=== PATIENT | female | born 1955 | race Caucasian/White ===

== ENCOUNTER 2016-11-25 15:30 | Emergency (ER) | payer SELFPAY ==
[~2016-11-25] VITALS: Ht 160 cm; Wt 82.0 kg
[~2016-11-25 15:30] MED LIST: BUSP5TAB3 PO; IBUP-232 PO; METO50CR PO; PARO20TA PO; TRAM50 PO
[2016-11-25 15:35] VITALS: BP 160/86; PULSE 61; RESP 16; TEMP 98.2; O2SAT 97
[2016-11-25 15:50] VITALS: BP 159/77; PULSE 62; RESP 22; TEMP 98.7; O2SAT 96
[2016-11-25] MEDS ORDERED: HYDR-3516 PO (16:02)
[2016-11-25] MEDS ORDERED: PARO20TA2 PO (16:02)
[2016-11-25] MEDS ORDERED: prednisone (16:02)
[2016-11-25] MEDS ORDERED: PRED2.5T PO (16:02)
[2016-11-25] MEDS ORDERED: ALPR.5 PO (16:02)
[2016-11-25] MEDS ORDERED: METO50TA11 PO (16:02)
--- NOTE | 2016-11-25 16:05 | PD ---
HPI Chief Complaint: Headache Time Seen by Provider: 15:49 Travel History International Travel<30 days: No Contact w/Intl Traveler<30days: No Traveled to known affect area: No History of Present Illness HPI 61-year-old female came to the emergency room with history of sudden onset of feeling dizzy/lightheaded, nauseous, feeling like she was going to pass out followed by a headache. Patient says this happened at 3 PM when she had entered her physical therapist's office and was sitting down eating for her appointment. She says she was feeling very warm this morning. The temperature in her house has been 85. When she drove herself to the physical therapist's office her car did not have air conditioning and it was very hot as well. They took her blood pressure and it was 190/110. Her heart rate was in the 90s and as per the patient although those numbers are much higher than her usual. Currently she is feeling better. Although she still has some headache. Patient is awake and answering questions appropriately. Vital signs are within acceptable limits. PFSH Past Medical History Narrative Medical List of her past medical, surgical, social and family history is reviewed from the nursing note. Arthritis: Yes Blood Disorders: No Anxiety: Yes Depression: Yes Heart Rhythm Problems: Yes Cancer: No High Cholesterol: Yes Chemotherapy: No Chest Pain: Yes Congestive Heart Failure: No Diminished Hearing: No Diverticulitis: Yes Headaches: Yes Hypertension: Yes Musculoskeletal: No Neurologic: No Respiratory: No Migraines: Yes Radiation Therapy: No Sleep Apnea: Yes Tetanus Vaccination: > 5 Years Influenza Vaccination: Yes ?: Not Menopausal: Yes : 4 Para: 2 Miscarriage: 2 : 0 Past Surgical History Body Medical Devices: BRONCHITIS Other Surgery: Yes (RIGHT BREAST LUMPECTOMY) Social History Alcohol Use: Yes (WINE DAILY) Tobacco Use: Yes (0.5 PPD) Substance Use: No Allergies-Medications (Allergen,Severity, Reaction): Coded Allergies: Fire Ant (Verified Allergy, Unknown, 11/25/16) Uncoded Allergies: tea tree oil (Allergy, Mild, 11/25/16) Comments List of her allergies reviewed from the nursing note. Reported Meds & Prescriptions Reported Meds & Active Scripts Active Reported Prednisone 2.5 Mg Tab 2.5 Mg PO QOD [prednisone] Hydrocodone-Acetaminophen 5-325 mg Tab 1 Tab PO Q12HR PRN Xanax (Alprazolam) 0.5 Mg Tab 0.5 Mg PO Q12HR PRN Paroxetine (Paroxetine HCl) 20 Mg Tab 20 Mg PO DAILY Metoprolol Succinate ER 24 HR (Metoprolol Succinate) 50 Mg Tab 50 Mg PO DAILY Narrative Medication List of her home medications reviewed from the nursing note. Review of Systems Except as stated in HPI: all other systems reviewed are Neg Physical Exam Narrative GENERAL: Awake, alert, anxious, no obvious distress SKIN: Focused skin assessment warm/dry. HEAD: Atraumatic. Normocephalic. EYES: Pupils equal and round. No scleral icterus. No injection or drainage. ENT: No nasal bleeding or discharge. Mucous membranes pink and moist. NECK: Trachea midline. No JVD. CARDIOVASCULAR: Regular rate and rhythm. No murmur appreciated. RESPIRATORY: No accessory muscle use. Clear to auscultation. Breath sounds equal bilaterally. GASTROINTESTINAL: Abdomen soft, non-tender, nondistended. Hepatic and splenic margins not palpable. MUSCULOSKELETAL: No obvious deformities. No clubbing. No cyanosis. No edema. NEUROLOGICAL: Awake and alert. No obvious cranial nerve deficits. Motor grossly within normal limits. Normal speech. PSYCHIATRIC: Appropriate mood and affect; insight and judgment normal. Data Data Last Documented VS Vital Signs Date Time Temp Pulse Resp B/P Pulse Ox O2 Delivery O2 Flow Rate FiO2 11/25/16 16:24 Room Air 11/25/16 15:50 98.7 62 22 159/77 96 Orders Electrocardiogram (11/25/16 16:21) Prothrombin Time / Inr (Pt) (11/25/16 16:21) Complete Blood Count With Diff (11/25/16 16:21) Basic Metabolic Panel (Bmp) (11/25/16 16:21) Troponin I (11/25/16 16:21) Urinalysis - C+S If Indicated (11/25/16 16:21) Ct Brain W/O Iv Contrast(Rout) (11/25/16 16:21) Ecg Monitoring (11/25/16 16:21) Iv Access Insert/Monitor (11/25/16 16:21) Oximetry (11/25/16 16:21) Ondansetron Inj (Zofran Inj) (11/25/16 16:30) Sodium Chloride 0.9% Flush (Ns Flush) (11/25/16 16:30) Sodium Chlorid 0.9% 500 Ml Inj (Ns 500 M (11/25/16 16:30) Ketorolac Inj (Toradol Inj) (11/25/16 17:30) Labs Laboratory Tests Test 11/25/16 16:25 White Blood Count 9.3 TH/MM3 Red Blood Count 4.42 MIL/MM3 Hemoglobin 13.8 GM/DL Hematocrit 42.0 % Mean Corpuscular Volume 95.0 FL Mean Corpuscular Hemoglobin 31.1 PG Mean Corpuscular Hemoglobin 32.8 % Concent Red Cell Distribution Width 14.6 % Platelet Count 238 TH/MM3 Mean Platelet Volume 9.0 FL Neutrophils (%) (Auto) 75.5 % Lymphocytes (%) (Auto) 15.0 % Monocytes (%) (Auto) 5.4 % Eosinophils (%) (Auto) 3.2 % Basophils (%) (Auto) 0.9 % Neutrophils # (Auto) 7.0 TH/MM3 Lymphocytes # (Auto) 1.4 TH/MM3 Monocytes # (Auto) 0.5 TH/MM3 Eosinophils # (Auto) 0.3 TH/MM3 Basophils # (Auto) 0.1 TH/MM3 CBC Comment DIFF FINAL Differential Comment Prothrombin Time 10.0 SEC Prothromb Time International 0.9 RATIO Ratio Urine Color LIGHT-YELLOW Urine Turbidity HAZY Urine pH 6.0 Urine Specific [place] 1.004 Urine Protein NEG mg/dL Urine Glucose (UA) NEG mg/dL Urine Ketones NEG mg/dL Urine Occult Blood NEG Urine Nitrite NEG Urine Bilirubin NEG Urine Urobilinogen LESS THAN 2.0 MG/DL Urine Leukocyte Esterase NEG Urine WBC LESS THAN 1 /hpf Urine Squamous Epithelial 5 /hpf Cells Urine Amorphous Sediment RARE Microscopic Urinalysis Comment CATH-CULT NOT IND Sodium Level 138 MEQ/L Potassium Level 3.7 MEQ/L Chloride Level 102 MEQ/L Carbon Dioxide Level 27.5 MEQ/L Anion Gap 9 MEQ/L Blood Urea Nitrogen 12 MG/DL Creatinine 0.71 MG/DL Estimat Glomerular Filtration 83 ML/MIN Rate Random Glucose 115 MG/DL Calcium Level 8.9 MG/DL Troponin I LESS THAN 0.02 NG/ML [facility] Medical Decision Making Medical Screen Exam Complete: Yes Emergency Medical Condition: Yes Medical Record Reviewed: Yes Differential Diagnosis TIA, heat exhaustion, dehydration Narrative Course 4:56 PM awaiting for the blood test result and the CAT scan to be done and resulted. I've ordered a fluid bolus and IV Zofran for the patient. Case will be signed over to the oncoming ER physician. Procedures EKG Prior to Arrival: Jacinda Gray MD November 25, 2016 16:05
[2016-11-25] MEDS ORDERED: ONDANSETRON HCL 4 MG/2 ML VIAL IVP ONE (16:30)
[2016-11-25] MEDS ORDERED: SODIUM CHLORID 0.9% 500 ML INJ 500 ML IV ONE (16:30)
[2016-11-25] MEDS ORDERED: SODIUM CHLORIDE 0.9% FLUSH 10 ML FLUSH IVF PRN (16:30)
[2016-11-25 17:02] LABS: BLOOD, URINE NEG (NEG); GLUCOSE,URINE NEG (NEG); KETONE, URINE NEG (NEG); NITRITE,URINE NEG (NEG); SQUAMOUS EPITHELIAL CELL URINE 5 /hpf (0-5); URINE COLOR LIGHT-YELLOW (YELLW/STRAW)
--- NOTE | 2016-11-25 17:06 | PD ---
Physical Exam Date Seen by Provider: November 25, 2016 Time Seen by Provider: 17:05 Narrative The patient is a 61-year-old female was initially evaluated by the previous physician, Dr. Alicea. Please refer to the initial history, physical, diagnostic evaluation, and treatment modality plan. The patient was signed out of 5 PM laboratory evaluation and CT of the brain pending. Data Data Last Documented VS Vital Signs Date Time Temp Pulse Resp B/P Pulse Ox O2 Delivery O2 Flow Rate FiO2 11/25/16 16:24 Room Air 11/25/16 15:50 98.7 62 22 159/77 96 Orders Electrocardiogram (11/25/16 16:21) Prothrombin Time / Inr (Pt) (11/25/16 16:21) Complete Blood Count With Diff (11/25/16 16:21) Basic Metabolic Panel (Bmp) (11/25/16 16:21) Troponin I (11/25/16 16:21) Urinalysis - C+S If Indicated (11/25/16 16:21) Ct Brain W/O Iv Contrast(Rout) (11/25/16 16:21) Ecg Monitoring (11/25/16 16:21) Iv Access Insert/Monitor (11/25/16 16:21) Oximetry (11/25/16 16:21) Ondansetron Inj (Zofran Inj) (11/25/16 16:30) Sodium Chloride 0.9% Flush (Ns Flush) (11/25/16 16:30) Sodium Chlorid 0.9% 500 Ml Inj (Ns 500 M (11/25/16 16:30) Ketorolac Inj (Toradol Inj) (11/25/16 17:30) Labs Laboratory Tests Test 11/25/16 16:25 White Blood Count 9.3 TH/MM3 Red Blood Count 4.42 MIL/MM3 Hemoglobin 13.8 GM/DL Hematocrit 42.0 % Mean Corpuscular Volume 95.0 FL Mean Corpuscular Hemoglobin 31.1 PG Mean Corpuscular Hemoglobin 32.8 % Concent Red Cell Distribution Width 14.6 % Platelet Count 238 TH/MM3 Mean Platelet Volume 9.0 FL Neutrophils (%) (Auto) 75.5 % Lymphocytes (%) (Auto) 15.0 % Monocytes (%) (Auto) 5.4 % Eosinophils (%) (Auto) 3.2 % Basophils (%) (Auto) 0.9 % Neutrophils # (Auto) 7.0 TH/MM3 Lymphocytes # (Auto) 1.4 TH/MM3 Monocytes # (Auto) 0.5 TH/MM3 Eosinophils # (Auto) 0.3 TH/MM3 Basophils # (Auto) 0.1 TH/MM3 CBC Comment DIFF FINAL Differential Comment Prothrombin Time 10.0 SEC Prothromb Time International 0.9 RATIO Ratio Urine Color LIGHT-YELLOW Urine Turbidity HAZY Urine pH 6.0 Urine Specific [place] 1.004 Urine Protein NEG mg/dL Urine Glucose (UA) NEG mg/dL Urine Ketones NEG mg/dL Urine Occult Blood NEG Urine Nitrite NEG Urine Bilirubin NEG Urine Urobilinogen LESS THAN 2.0 MG/DL Urine Leukocyte Esterase NEG Urine WBC LESS THAN 1 /hpf Urine Squamous Epithelial 5 /hpf Cells Urine Amorphous Sediment RARE Microscopic Urinalysis Comment CATH-CULT NOT IND Sodium Level 138 MEQ/L Potassium Level 3.7 MEQ/L Chloride Level 102 MEQ/L Carbon Dioxide Level 27.5 MEQ/L Anion Gap 9 MEQ/L Blood Urea Nitrogen 12 MG/DL Creatinine 0.71 MG/DL Estimat Glomerular Filtration 83 ML/MIN Rate Random Glucose 115 MG/DL Calcium Level 8.9 MG/DL Troponin I LESS THAN 0.02 NG/ML [facility] Medical Record Reviewed: Yes Supervised Visit with ALYSIA: No Interpretation(s) EKG reveals sinus bradycardia with a rate of 55. Unifocal PVC. Low QRS voltage precordial leads. Laboratory Tests Test 11/25/16 16:25 White Blood Count 9.3 TH/MM3 Red Blood Count 4.42 MIL/MM3 Hemoglobin 13.8 GM/DL Hematocrit 42.0 % Mean Corpuscular Volume 95.0 FL Mean Corpuscular Hemoglobin 31.1 PG Mean Corpuscular Hemoglobin 32.8 % Concent Red Cell Distribution Width 14.6 % Platelet Count 238 TH/MM3 Mean Platelet Volume 9.0 FL Neutrophils (%) (Auto) 75.5 % Lymphocytes (%) (Auto) 15.0 % Monocytes (%) (Auto) 5.4 % Eosinophils (%) (Auto) 3.2 % Basophils (%) (Auto) 0.9 % Neutrophils # (Auto) 7.0 TH/MM3 Lymphocytes # (Auto) 1.4 TH/MM3 Monocytes # (Auto) 0.5 TH/MM3 Eosinophils # (Auto) 0.3 TH/MM3 Basophils # (Auto) 0.1 TH/MM3 CBC Comment DIFF FINAL Differential Comment Prothrombin Time 10.0 SEC Prothromb Time International 0.9 RATIO Ratio Urine Color LIGHT-YELLOW Urine Turbidity HAZY Urine pH 6.0 Urine Specific [place] 1.004 Urine Protein NEG mg/dL Urine Glucose (UA) NEG mg/dL Urine Ketones NEG mg/dL Urine Occult Blood NEG Urine Nitrite NEG Urine Bilirubin NEG Urine Urobilinogen LESS THAN 2.0 MG/DL Urine Leukocyte Esterase NEG Urine WBC LESS THAN 1 /hpf Urine Squamous Epithelial 5 /hpf Cells Urine Amorphous Sediment RARE Microscopic Urinalysis Comment CATH-CULT NOT IND Sodium Level 138 MEQ/L Potassium Level 3.7 MEQ/L Chloride Level 102 MEQ/L Carbon Dioxide Level 27.5 MEQ/L Anion Gap 9 MEQ/L Blood Urea Nitrogen 12 MG/DL Creatinine 0.71 MG/DL Estimat Glomerular Filtration 83 ML/MIN Rate Random Glucose 115 MG/DL Calcium Level 8.9 MG/DL Troponin I LESS THAN 0.02 NG/ML Last Impressions Head CT 11/25/16 1621 Signed Impressions: Service Date/Time: Friday, November 25, 2016 17:05 - CONCLUSION: 1. No evidence of acute intracranial pathology. No masses are identified. 1. Christ Fragoso MD Differential Diagnosis Differential diagnosis includes heat exhaustion, heat stroke, cephalgia, tension headache, migraine, subarachnoid hemorrhage, intracranial hemorrhage, presyncope, dehydration. Narrative Course The patient was initially evaluated by the previous physician, Dr. Nickerson. Please refer to the initial history, physical, diagnostic evaluation, and treatment modality plan. The patient was signed out at [address] of the brain and laboratory evaluation pending. Brain was negative. The patient was reevaluated at 5:20 PM, her symptoms had significantly improved since she cold out, still complain of a mild headache and thought it might improve after eating. Therefore, the patient was administered Toradol 50 mg intravenously and was provided a snack. Labs are unremarkable. UA is negative. Troponin is negative. The patient was reevaluated at 6 PM, tolerated gram crackers and Gatorade without difficulty. The patient's truck is at her physical therapist office on [address], we will have case management evaluate the patient to see if we can obtain a ride for the patient to her truck. She is stable for discharge. Diagnosis Primary Impression: Cephalgia Qualified Code: R51 - Nonintractable headache, unspecified chronicity pattern , unspecified headache type Additional Impression: Heat exposure Qualified Code: T67.9XXA - Heat exposure, initial encounter Patient Instructions: General Instructions Additional Instruction: Plenty fluids to stay hydrated. Follow-up with her primary physician. Return if symptoms worsen or progress. Med/Other Pt SpecificInfo: No Change to Meds Disposition: 01 DISCHARGE HOME Condition: Stable Tyson King MD November 25, 2016 17:06
[2016-11-25 17:09] LABS: BASOPHIL # 0.1 TH/MM3 (0-0.2); BASOPHIL % 0.9 % (0.0-2.0); EOSINOPHIL # 0.3 TH/MM3 (0-0.4); EOSINOPHIL % 3.2 % (0.0-4.0); HEMO FLAGS DIFF FINAL; LYMPHOCYTE # 1.4 TH/MM3 (1.0-4.8); MEAN CORPUSCULAR HEMOGLOBIN 31.1 PG (27.0-34.0); MEAN CORPUSCULAR HGB CONC 32.8 % (32.0-36.0); MONO % 5.4 % (0.0-8.0); NEUT % 75.5 % (16.0-70.0); PLATELET COUNT 238 TH/MM3 (150-450); RED BLOOD COUNT 4.42 MIL/MM3 (4.00-5.30); RED CELL DISTRIBUTION WIDTH 14.6 % (11.6-17.2); WHITE BLOOD COUNT 9.3 TH/MM3 (4.0-11.0)
--- NOTE | 2016-11-25 17:17 | RADRPT ---
EXAM DATE/TIME: 11/25/2016 17:05 [facility] COMPARISON: No previous studies available for comparison. INDICATIONS : High blood pressure with a headache RADIATION DOSE: 46.40 CTDIvol (mGy) MEDICAL HISTORY : Hypertension. SURGICAL HISTORY : None. ENCOUNTER: Initial ACUITY: 1 day PAIN SCALE: 6/10 LOCATION: Bilateral cranial TECHNIQUE: Multiple contiguous axial images were obtained of the head. Using automated exposure control and adj ustment of the mA and/or kV according to patient size, radiation dose was kept as low as reasonably a chievable to obtain optimal diagnostic quality images. FINDINGS: CEREBRUM: The ventricles are normal for age. No evidence of midline shift, mass lesion, hemorrhage or acute in farction. No extra-axial fluid collections are seen. POSTERIOR FOSSA: The cerebellum and brainstem are intact. The 4th ventricle is midline. The cerebellopontine angle i s unremarkable. EXTRACRANIAL: The visualized portion of the orbits is intact. SKULL: The calvaria is intact. No evidence of skull fracture. CONCLUSION: 1. No evidence of acute intracranial pathology. No masses are identified. 1. Christ Fragoso MD on November 25, 2016 at 17:15 Board Certified Radiologist. This report was verified electronically.
[2016-11-25 17:21] LABS: COMMENT (UR) CATH-CULT NOT IND; CULTURE IF INDICATED CATH CULTURE NOT IND
[2016-11-25 17:24] LABS: ANION GAP 9 MEQ/L (5-15); BICARBONATE 27.5 MEQ/L (21.0-32.0); BLOOD UREA NITROGEN 12 MG/DL (7-18); CHLORIDE 102 MEQ/L (98-107); GLOMERULAR FILTRATION RATE 83 ML/MIN (>89); POTASSIUM 3.7 MEQ/L (3.5-5.1); SODIUM (NA) 138 MEQ/L (136-145)
[2016-11-25] MEDS ORDERED: KETOROLAC TROMETHAMINE 30 MG/ML (IVP) VIAL IV PUSH ONE (17:30)
[2016-11-25 17:44] LABS: INTERNATIONAL NORMALIZED RATIO 0.9 RATIO
--- NOTE | 2016-11-26 16:17 | EKG ---
Date Performed: 11/25/2016 Time Performed: 16:35:43 PTAGE: 61 years EKG: SINUS BRADYCARDIA WITH OCCASIONAL VENTRICULAR PREMATURE COMPLEXES POSSIBLE LEFT ATRIAL ENLA RGEMENT LOW QRS VOLTAGE IN PRECORDIAL LEADS Compared to previous tracing, the patient is now having P VCs BORDERLINE ECG NO PREVIOUS TRACING DOCTOR: Sunshine Parker Interpretating Date/Time 11/26/2016 16:15:19
== END 2016-11-25 18:50 | disposition home or self-care (01) ==
LOC: NEPD 15:30
DX: R51 Headache (principal); T67.9XXA Effect of heat and light, unspecified, initial encounter; R00.1 Bradycardia, unspecified
CPT/HCPCS: 70450; 80048; 81001; 84484; 85025; 85610; 93005; 96361; 96374; 96375; 99284; J1885; J2405; J7040

== ENCOUNTER 2017-08-01 18:34 | Emergency (ER) | payer SELFPAY ==
[~2017-08-01] VITALS: Ht 160 cm; Wt 85.0 kg
[~2017-08-01 18:34] MED LIST changes: +ALPR.5 PO; -BUSP5TAB3 PO; +HYDR-3516 PO; -IBUP-232 PO; +METO1TAB9 PO; -METO50CR PO; -PARO20TA PO; +PARO20TA2 PO; +PRED2.5T PO; -TRAM50 PO; +prednisone
[2017-08-01 18:56] VITALS: BP 157/79; PULSE 78; RESP 20; TEMP 98.7; O2SAT 97
[2017-08-01] MEDS ORDERED: ACETAMINOPHEN 325 MG TAB PO ONE (20:30)
--- NOTE | 2017-08-01 21:46 | RADRPT ---
EXAM DATE/TIME: 08/01/2017 20:52 [facility] COMPARISON: No previous studies available for comparison. INDICATIONS : Patient complains of headache, slipped and fell, hitting head on tile. RADIATION DOSE: 69.15 CTDIvol (mGy) MEDICAL HISTORY : Hypertension. Cardiovascular disease SURGICAL HISTORY : None. ENCOUNTER: Initial ACUITY: 1 day PAIN SCALE: 8/10 LOCATION: cranial TECHNIQUE: Multiple contiguous axial images were obtained of the head. Using automated exposure control and adj ustment of the mA and/or kV according to patient size, radiation dose was kept as low as reasonably a chievable to obtain optimal diagnostic quality images. DICOM format image data is available electro nically for review and comparison. FINDINGS: CEREBRUM: The ventricles are normal for age. No evidence of midline shift, mass lesion, hemorrhage or acute in farction. No extra-axial fluid collections are seen. POSTERIOR FOSSA: The cerebellum and brainstem are intact. The 4th ventricle is midline. The cerebellopontine angle i s unremarkable. EXTRACRANIAL: The visualized portion of the orbits is intact. SKULL: The calvaria is intact. No evidence of skull fracture. CONCLUSION: Normal examination for a patient of this age. John Roach MD on August 01, 2017 at 21:43 Board Certified Radiologist. This report was verified electronically.
--- NOTE | 2017-08-01 21:49 | RADRPT ---
EXAM DATE/TIME: 08/01/2017 20:55 [facility] COMPARISON: No previous studies available for comparison. INDICATIONS : Patient complains of headache, slipped and fell hit head on tile. RADIATION DOSE: 28.81 CTDIvol (mGy) MEDICAL HISTORY : Hypertension. Cardiovascular disease SURGICAL HISTORY : Non-responsive. ENCOUNTER: Initial ACUITY: 1 day PAIN SCALE: 8/10 LOCATION: neck TECHNIQUE: Volumetric scanning of the cervical spine was performed. Multiplanar reconstructions in the sagittal, coronal and oblique axial planes were performed. Using automated exposure control and adjustment o f the mA and/or kV according to patient size, radiation dose was kept as low as reasonably achievable to obtain optimal diagnostic quality images. DICOM format image data is available electronically f or review and comparison. FINDINGS: No fracture or spondylolisthesis. No prevertebral soft tissue swelling. Moderate degenerative disc di sease in the lower cervical spine. CONCLUSION: 1. No acute findings. Moderate degenerative disease in the lower cervical spine. John Roach MD on August 01, 2017 at 21:44 Board Certified Radiologist. This report was verified electronically.
[2017-08-01 22:08] VITALS: BP 160/82; PULSE 61; RESP 18; O2SAT 100
--- NOTE | 2017-08-01 22:30 | PD ---
HPI Chief Complaint: Fall Time Seen by Provider: 20:02 Travel History International Travel<30 days: No Contact w/Intl Traveler<30days: No Traveled to known affect area: No History of Present Illness HPI 62-year-old female came to the emergency room with history of headache. Patient says that she slipped and fell backwards and hit the back of her head on tile floor very hard yesterday. She had some headaches and but after she took some rest she felt better. But this morning when she woke up she started having the headache again. And it has progressively worsened. She does not feel good and hence she came in. Patient is awake and answering questions appropriately. Vital signs are stable. She is not on any blood thinners. She describes her headache all over her head with no radiation. No aggravating or relieving factors identified. [facility] Past Medical History Narrative Medical List of her past medical, surgical, social and family history is reviewed from the nursing note. Arthritis: Yes Blood Disorders: No Anxiety: Yes Depression: Yes Heart Rhythm Problems: Yes Cancer: No Cardiovascular Problems: Yes High Cholesterol: Yes Chemotherapy: No Chest Pain: Yes Congestive Heart Failure: No Diminished Hearing: No Diverticulitis: Yes Headaches: Yes Hypertension: Yes Musculoskeletal: No Neurologic: No Respiratory: No Migraines: Yes Radiation Therapy: No Sleep Apnea: Yes Menopausal: Yes : 4 Para: 2 Miscarriage: 2 : 0 Past Surgical History Body Medical Devices: BRONCHITIS Other Surgery: Yes (RIGHT BREAST LUMPECTOMY) Social History Alcohol Use: Yes (WINE DAILY) Tobacco Use: Yes (0.5 PPD) Substance Use: No Allergies-Medications (Allergen,Severity, Reaction): Coded Allergies: fire ant (Unverified Allergy, Unknown, 08/01/17) Uncoded Allergies: tea tree oil (Allergy, Mild, 11/25/16) Comments List of allergies reviewed from the nursing note. Reported Meds & Prescriptions Reported Meds & Active Scripts Active Reported [prednisone] Hydrocodone-Acetaminophen 5-325 mg Tab 1 Tab PO Q12HR PRN Xanax (Alprazolam) 0.5 Mg Tab 0.5 Mg PO Q12HR PRN Paroxetine (Paroxetine HCl) 20 Mg Tab 20 Mg PO DAILY Metoprolol Succinate ER 24 HR (Metoprolol Succinate) 50 Mg Tab 50 Mg PO DAILY Narrative Medication List of her home medications reviewed from the nursing note. Review of Systems Except as stated in HPI: all other systems reviewed are Neg Neurologic: Positive: Headache Physical Exam Narrative GENERAL: Awake, alert, moderate distress SKIN: Focused skin assessment warm/dry. HEAD: Atraumatic. Normocephalic. EYES: Pupils equal and round. No scleral icterus. No injection or drainage. ENT: No nasal bleeding or discharge. Mucous membranes pink and moist. NECK: Trachea midline. No JVD. CARDIOVASCULAR: Regular rate and rhythm. No murmur appreciated. RESPIRATORY: No accessory muscle use. Clear to auscultation. Breath sounds equal bilaterally. GASTROINTESTINAL: Abdomen soft, non-tender, nondistended. Hepatic and splenic margins not palpable. MUSCULOSKELETAL: No obvious deformities. No clubbing. No cyanosis. No edema. NEUROLOGICAL: Awake and alert. No obvious cranial nerve deficits. Motor grossly within normal limits. Normal speech. PSYCHIATRIC: Appropriate mood and affect; insight and judgment normal. Data Data Last Documented VS Vital Signs Date Time Temp Pulse Resp B/P (MAP) Pulse Ox O2 Delivery O2 Flow Rate FiO2 08/01/17 22:58 08/01/17 22:08 61 18 100 Room Air 08/01/17 18:[address] Brain W/O Iv Contrast(Rout) (08/01/17 ) Ct Cerv Spine W/O Contrast (08/01/17 ) Acetaminophen (Tylenol) (08/01/17 20:30) Ed Discharge Order (08/01/17 22:23) MDM Medical Decision Making Medical Screen Exam Complete: Yes Emergency Medical Condition: Yes Medical Record Reviewed: Yes Differential Diagnosis Intracranial bleed, skull fracture, concussion Narrative Course 10:[address] scan of her brain and cervical spine was reported as negative by the radiologist. Patient was given Tylenol for her headache. At this point I think she has postconcussive headache. I've explained this to her. I have answered all her questions the best of my ability. I'm comfortable discharging her home. Procedures EKG Prior to Arrival: No Diagnosis Primary Impression: Post-concussion headache Referrals: Primary Care Physician Departure Forms: Tests/Procedures, Work Release Enter return to work date: Aug 04, 2017 Additional Instructions: Return to the ER if condition worsens or any other new concerns. Tylenol over the next 48-72 hours. Do not watch any television, computer screens or Smart phone. If the headache continues then follow-up with your primary care who may then need to refer you to a neurologist. Med/Other Pt SpecificInfo: No Change to Meds Disposition: 01 DISCHARGE HOME Condition: Stable Jacinda Nickerson MD Aug 01, 2017 22:30
== END 2017-08-01 23:18 | disposition home or self-care (01) ==
LOC: NEPC 18:34
DX: F07.81 Postconcussional syndrome (principal); G44.309 Post-traumatic headache, unspecified, not intractable; F41.9 Anxiety disorder, unspecified; F32.9 Major depressive disorder, single episode, unspecified; E78.00 Pure hypercholesterolemia, unspecified; I10 Essential (primary) hypertension; I25.10 Atherosclerotic heart disease of native coronary artery without angina pectoris; F17.200 Nicotine dependence, unspecified, uncomplicated
CPT/HCPCS: 70450; 72125; 99285

== ENCOUNTER 2017-11-19 18:56 | Inpatient (IN) | payer SELFPAY ==
[~2017-11-19] VITALS: Ht 160 cm; Wt 84.4 kg
[2017-11-19] MEDS: SODIUM CHLOR 0.9% 1000 ML INJ 1,000 ML IV SCH (00:51)
[~2017-11-19 18:56] MED LIST changes: -PRED2.5T PO
[2017-11-19 19:01] VITALS: BP 211/98; PULSE 75; RESP 18; TEMP 97.6; O2SAT 99
--- NOTE | 2017-11-19 19:24 | PD ---
HPI Chief Complaint: Abdominal Pain Time Seen by Provider: 19:09 Travel History International Travel<30 days: No Contact w/Intl Traveler<30days: No Traveled to known affect area: No History of Present Illness HPI The patient is a 62 year old female who presents to the [facility] emergency department with a history of abdominal pain and diarrhea that she reports began 10 days ago. The patient reports that the diarrhea seemed to improve and then began to get worse again on Monday. She reports that the abdominal pain has gradually been getting worse with time and is now a 10 out of 10 in severity. The patient reports that the abdominal pain feels like she has been punched in the abdomen. She reports that the pain is constant. She reports that the pain is worse with eating. She denies any alleviating factors. She reports that the diarrhea has been occurring since Monday approximately 25 times a day. She reports that the stool is watery. She is otherwise unsure of the color. She has not noticed any blood in the stool. The patient reports that the pain has now moved and is more generalized throughout her abdomen. She reports having generalized weakness. She reports having nausea without vomiting. She reports having dyspnea on exertion. She denies having any chest pain or chest pressure. She reports having chronic urinary frequency which is unchanged. She denies having any dysuria or urinary urgency. She is unsure of whether she has had any fevers. The patient denies having any known sick contacts, recent antibiotic use, unusual food intake, or recent camping. The patient reports that the last time that she was on antibiotic was over 3 months ago. She cannot recall the name of the antibiotic. She cannot recall why she took the antibiotic. On review of systems otherwise she denies having any significant cough or congestion, neck pain, or neurologic symptoms. [facility] Past Medical History Narrative Medical The patient's past medical history is significant for hypertension, depression and anxiety, chronic low back pain, history of diverticulitis. The patient reports that her last colonoscopy was approximately 10 years ago. Her primary care physician is Dr. Fontaine. Arthritis: Yes Blood Disorders: No Anxiety: Yes Depression: Yes Heart Rhythm Problems: Yes Cancer: No Cardiovascular Problems: Yes High Cholesterol: Yes Chemotherapy: No Chest Pain: Yes Congestive Heart Failure: No Diminished Hearing: No Diverticulitis: Yes Headaches: Yes Hypertension: Yes Musculoskeletal: No Neurologic: No Respiratory: No Migraines: Yes Radiation Therapy: No Sleep Apnea: Yes Tetanus Vaccination: Unknown Influenza Vaccination: No ?: Not LMP: menapause Menopausal: Yes : 4 Para: 2 Miscarriage: 2 : 0 Past Surgical History Narrative Surgical The patient's past surgical history is significant for shoulder surgery, right tennis elbow surgery Body Medical Devices: BRONCHITIS Other Surgery: Yes (RIGHT BREAST LUMPECTOMY) Social History Alcohol Use: Yes (WINE DAILY-1-2 glasses) Tobacco Use: Yes (0.5 PPD) Substance Use: No Allergies-Medications (Allergen,Severity, Reaction): Coded Allergies: fire ant (Unverified Allergy, Unknown, 11/19/17) Uncoded Allergies: tea tree oil (Allergy, Mild, 11/25/16) Reported Meds & Prescriptions Reported Meds & Active Scripts Active Reported Hydrocodone-Acetaminophen 5-325 mg Tab 1 Tab PO Q12HR PRN Xanax (Alprazolam) 0.5 Mg Tab 0.5 Mg PO Q12HR PRN Paroxetine (Paroxetine HCl) 20 Mg Tab 20 Mg PO DAILY Metoprolol Succinate ER 24 HR (Metoprolol Succinate) 50 Mg Tab 50 Mg PO DAILY Review of Systems Except as stated in HPI: all other systems reviewed are Neg General / Constitutional: No: Fever Eyes: No: Visual changes HENT: No: Headaches Cardiovascular: Positive: Dyspnea on exertion, No: Chest Pain or Discomfort Respiratory: No: Shortness of Breath Gastrointestinal: Positive: Nausea, Diarrhea, Abdominal Pain, No: Vomiting Genitourinary: No: Dysuria Musculoskeletal: No: Pain Skin: No Rash Neurologic: Positive: Weakness (Generalized weakness), No: Focal Abnormalities , Change in Mentation, Slurred Speech, Sensory Disturbance Psychiatric: No: Depression Endocrine: No: Polydipsia Hematologic/Lymphatic: No: Easy Bruising Physical Exam Narrative General: The patient is a well-developed well-nourished female in no acute distress. Head and Neck exam: Head is normocephalic atraumatic. Eyes: EOMI, pupils are equal round and reactive to light. Nose: Midline septum with pink mucous membranes Mouth: Dentition unremarkable. Moist mucus membranes. Posterior oropharynx is not erythematous. No tonsillar hypertrophy. Uvula midline. Airway patent. Neck: No palpable lymphadenopathy. No nuchal rigidity. No thyromegaly. Cardiovascular: Regular rate and rhythm without murmurs, gallops, or rubs. No pulse deficit to the extremities on simultaneous auscultation and palpation of her radial artery. Lungs: Clear to auscultation bilaterally. No wheezes, rhonchi, or rales. Abdomen: Soft, with reported tenderness on palpation and that is most prominent in the midepigastric area and bilateral lower quadrants of the abdomen, however she reports that it is diffuse to palpation. The patient has normal bowel sounds audible. No guarding, rebound, or rigidity. No point tenderness specifically on palpation of her McBurney's point. Negative Chavez sign. Extremities: No clubbing, cyanosis, or edema. 2+ pulses in all 4 extremities. No calf tenderness on palpation. Back: No spinous process tenderness to palpation. No costovertebral angle tenderness to palpation. Neurologic Exam: Grossly nonfocal. Skin Exam: No rash noted. Intact skin that is warm and dry. Data Data Last Documented VS Vital Signs Date Time Temp Pulse Resp B/P (MAP) Pulse Ox O2 Delivery O2 Flow Rate FiO2 11/19/17 20:41 20 11/19/17 20:31 99 Room Air 11/19/17 20:13 63 11/19/17 19:01 97.6 Orders Orders Electrocardiogram (11/19/17 19:21) Complete Blood Count With Diff (11/19/17 19:21) Comprehensive Metabolic Panel (11/19/17 19:21) Creatine Kinase (Cpk) (11/19/17 19:21) Ckmb (Isoenzyme) Profile (11/19/17 19:21) Troponin I (11/19/17:) B-Type Natriuretic Peptide (11/19/17 19:21) Prothrombin Time / Inr (Pt) (11/19/17 19:21) Act Partial Throm Time (Ptt) (11/19/17 19:21) Lipase (11/19/17 19:21) Urinalysis - C+S If Indicated (11/19/17 19:21) Magnesium (Mg) (11/19/17 19:21) Enteric Path (Stool) (11/19/17 19:21) C Diff Toxin Pcr (11/19/17 19:21) Chest, Single Ap (11/19/17 19:21) Ct Abd/Pel W Iv Contrast(Rout) (11/19/17 19:21) Iv Access Insert/Monitor (11/19/17 19:21) Ecg Monitoring (11/19/17 19:21) Oximetry (11/19/17 19:21) Stool Wbc (Leukocytes) (11/19/17 19:21) Lactic Acid (11/19/17 19:21) Sodium Chlor 0.9% 1000 Ml Inj (Ns 1000 M (11/19/17 19:30) Ondansetron Inj (Zofran Inj) (11/19/17 19:30) Morphine Inj (Morphine Inj) (11/19/17 19:30) Prochlorperazine Inj (Compazine Inj) (11/19/17 20:00) Oral Rehydration (11/19/17 20:41) Prochlorperazine Inj (Compazine Inj) (11/19/17 21:00) Iohexol 350 Inj (Omnipaque 350 Inj) (11/19/17 21:07) Metronidazole 500 Mg Inj (Flagyl 500 Mg (11/19/17 21:45) Levofloxacin (Levaquin) (11/19/17 21:45) Morphine Inj (Morphine Inj) (11/19/17 21:45) Admit Order (Ed Use Only) (11/19/17 21:42) Labs Laboratory Tests Test 11/19/17 19:45 White Blood Count 8.1 TH/MM3 Red Blood Count 4.62 MIL/MM3 Hemoglobin 14.2 GM/DL Hematocrit 42.3 % Mean Corpuscular Volume 91.6 FL Mean Corpuscular Hemoglobin 30.7 PG Mean Corpuscular Hemoglobin Concent 33.6 % Red Cell Distribution Width 13.2 % Platelet Count 268 TH/MM3 Mean Platelet Volume 8.1 FL Neutrophils (%) (Auto) 63.9 % Lymphocytes (%) (Auto) 24.5 % Monocytes (%) (Auto) 6.7 % Eosinophils (%) (Auto) 4.2 % Basophils (%) (Auto) 0.7 % Neutrophils # (Auto) 5.2 TH/MM3 Lymphocytes # (Auto) 2.0 TH/MM3 Monocytes # (Auto) 0.5 TH/MM3 Eosinophils # (Auto) 0.3 TH/MM3 Basophils # (Auto) 0.1 TH/MM3 CBC Comment DIFF FINAL Differential Comment Prothrombin Time 10.3 SEC Prothromb Time International Ratio 1.0 RATIO Activated Partial Thromboplast Time 26.7 SEC Urine Color LIGHT-YELLOW Urine Turbidity CLEAR Urine pH 6.0 Urine Specific [place] 1.007 Urine Protein NEG mg/dL Urine Glucose (UA) NEG mg/dL Urine Ketones NEG mg/dL Urine Occult Blood NEG Urine Nitrite NEG Urine Bilirubin NEG Urine Urobilinogen LESS THAN 2.0 MG/DL Urine Leukocyte Esterase NEG Urine RBC 1 /hpf Urine WBC 1 /hpf Urine Squamous Epithelial Cells 3 /hpf Microscopic Urinalysis Comment CULT NOT INDICATED Blood Urea Nitrogen 6 MG/DL Creatinine 0.69 MG/DL Random Glucose 98 MG/DL Total Protein 7.3 GM/DL Albumin 3.5 GM/DL Calcium Level 9.5 MG/DL Magnesium Level 1.9 MG/DL Alkaline Phosphatase 67 U/L Aspartate Amino Transf (AST/SGOT) 12 U/L Alanine Aminotransferase (ALT/SGPT) 17 U/L Total Bilirubin 0.3 MG/DL Sodium Level 140 MEQ/L Potassium Level 3.5 MEQ/L Chloride Level 104 MEQ/L Carbon Dioxide Level 26.2 MEQ/L Anion Gap 10 MEQ/L Estimat Glomerular Filtration Rate 86 ML/MIN Lactic Acid Level 1.3 mmol/L Total Creatine Kinase 46 U/L Troponin I LESS THAN 0.02 NG/ML B-Type Natriuretic Peptide 123 PG/ML Lipase 73 U/L [facility] Medical Decision Making Medical Screen Exam Complete: Yes Emergency Medical Condition: Yes Medical Record Reviewed: Yes Interpretation(s) Last Impressions Chest X-Ray 11/19/171920 Signed Impressions: Service Date/Time: Sunday, November 19, 2017 19:29 - CONCLUSION: No acute disease. David Valencia MD Abdomen/Pelvis CT 11/19/171920 Signed Impressions: Service Date/Time: Sunday, November 19, 2017 20:43 - CONCLUSION: 1. 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 2. Prominent lymph nodes in the mesentery, retroperitoneum and retrocrural regions, nonspecific but condition such as leukemia/lymphoma cannot be excluded. 3. Diverticulosis without diverticulitis. David Valencia MD Differential Diagnosis Diverticulitis, versus colitis, versus pancreatitis, versus electrolyte derangements, versus dehydration Narrative Course During the course of the patient's emergency department visit, the patient's history, examination, and differential diagnosis were reviewed with the patient. The patient was placed on a barrel centerer with oximetry and frequent blood pressure monitoring. The patient had IV access obtained and blood work sent for analysis. An EKG is done and shows a sinus bradycardia heart rate of 50, QRS duration 94 ms, QTC [address] segment elevation or depression , T waves are inverted in V1. The patient was initially provided normal saline 1 L IV fluid bolus, morphine 4 mg IV, Compazine 5 mg IV. The patient's laboratory studies were reviewed and remarkable for a CBC that shows a white count of 8.1, hemoglobin 14.2, platelets 268 with 4.2 eosinophils on differential. CMP is remarkable for a BUN of 6, GFR of 86, AST 12, cardiac enzymes are within normal limits, lipase within normal limits, BNP is 123, lactic acid 1.3, PT 10.3, PTT 26.7. Urinalysis is within normal limits. The patient was updated regarding her laboratory studies. The patient will be started on oral rehydration therapy. Radiology studies were reviewed and remarkable for a chest x-ray that shows no acute disease. A CT scan of the abdomen and pelvis shows garland mesentery which can be seen with mesenteric panniculitis, prominent lymph nodes in the mesentery , retroperitoneum, and retrocrural regions nonspecific but condition such as leukemia/lymphoma cannot be excluded. Diverticulosis without diverticulitis. Given these findings, the patient was started on antibiotic and admitted for continued evaluation and treatment. The patient's results were discussed with the patient, including the plan of care. I explained that further testing and/ or monitoring is indicated based on the patient's history, examination, and/ or laboratory findings. Therefore, I recommended admission for additional evaluation. The patient expressed understanding and was agreeable with this plan. The patient was admitted to the hospital in stable condition and sent to a bed under the care of the [facility] service. Physician Communication Physician Communication The patient's case including history, pertinent physical examination findings, and laboratory studies were discussed with Dr. Dai. It was agreed that the patient would be admitted to the [facility] service. Diagnosis Primary Impression: Mesenteric panniculitis Additional Impression: Intra-abdominal lymphadenopathy Admitting Information Admitting Physician Requests: Admit Suze Perez MD November 19, 2017 19:23
[2017-11-19] MEDS ORDERED: ONDANSETRON HCL 4 MG/2 ML VIAL IV ONE (19:30)
[2017-11-19] MEDS ORDERED: MORPHINE SULFATE 4 MG/ML INJ IV PUSH ONE ×2 (19:30→21:45)
[2017-11-19] MEDS ORDERED: SODIUM CHLOR 0.9% 1000 ML INJ 1,000 ML IV ONE (19:30)
--- NOTE | 2017-11-19 19:45 | RADRPT ---
EXAM DATE/TIME: 11/19/2017 19:29 [facility] COMPARISON: No previous studies available for comparison. INDICATIONS : Nausea, vomiting, fever x10 days. MEDICAL HISTORY : None. SURGICAL HISTORY : None. ENCOUNTER: Initial ACUITY: 2 weeks PAIN SCORE: 10/10 LOCATION: Bilateral chest FINDINGS: A single view of the chest demonstrates the lungs to be symmetrically aerated without evidence of mas s, infiltrate or effusion. The cardiomediastinal contours are unremarkable. Osseous structures are intact. CONCLUSION: No acute disease. David Valencia MD on November 19, 2017 at 19:42 Board Certified Radiologist. This report was verified electronically.
[2017-11-19 19:57] LABS: AUTOMATED NEUTROPHIL # 5.2 TH/MM3 (1.8-7.7); BASOPHIL # 0.1 TH/MM3 (0-0.2); BASOPHIL % 0.7 % (0.0-2.0); EOSINOPHIL # 0.3 TH/MM3 (0-0.4); EOSINOPHIL % 4.2 % (0.0-4.0); HEMATOCRIT 42.3 % (35.0-46.0); HEMOGLOBIN 14.2 GM/DL (11.6-15.3); LYMPH % 24.5 % (9.0-44.0); MEAN CELL VOLUME 91.6 FL (80.0-100.0); MEAN CORPUSCULAR HEMOGLOBIN 30.7 PG (27.0-34.0); MEAN CORPUSCULAR HGB CONC 33.6 % (32.0-36.0); MEAN PLATELET VOLUME 8.1 FL (7.0-11.0); MONO % 6.7 % (0.0-8.0); MONOCYTE # 0.5 TH/MM3 (0-0.9); NEUT % 63.9 % (16.0-70.0); PLATELET COUNT 268 TH/MM3 (150-450); RED BLOOD COUNT 4.62 MIL/MM3 (4.00-5.30); RED CELL DISTRIBUTION WIDTH 13.2 % (11.6-17.2); WHITE BLOOD COUNT 8.1 TH/MM3 (4.0-11.0)
[2017-11-19 20:00] LABS: BILIRUBIN, URINE NEG (NEG); BLOOD, URINE NEG (NEG); GLUCOSE,URINE NEG (NEG); KETONE, URINE NEG (NEG); NITRITE,URINE NEG (NEG); SQUAMOUS EPITHELIAL CELL URINE 3 /hpf (0-5); URINE COLOR LIGHT-YELLOW (YELLW/STRAW); URINE LEUKOCYTE ESTERASE NEG (NEG)
[2017-11-19] MEDS ORDERED: PROCHLORPERAZINE INJ 10 MG/2 ML VIAL IV PUSH ONE ×2 (20:00→21:00)
[2017-11-19 20:13] VITALS: BP 153/73; PULSE 63; RESP 15; O2SAT 99
[2017-11-19 20:16] LABS: ALBUMIN 3.5 GM/DL (3.4-5.0); AST (GOT) 12 U/L (15-37); BICARBONATE 26.2 MEQ/L (21.0-32.0); BLOOD UREA NITROGEN 6 MG/DL (7-18); CALCIUM 9.5 MG/DL (8.5-10.1); CHLORIDE 104 MEQ/L (98-107); CREATININE 0.69 MG/DL (0.50-1.00); GLOMERULAR FILTRATION RATE 86 ML/MIN (>89); GLUCOSE,RANDOM 98 MG/DL (74-106); MAGNESIUM 1.9 MG/DL (1.5-2.5); PROTHROMBIN TIME - PATIENT 10.3 SEC (9.8-11.6); SODIUM (NA) 140 MEQ/L (136-145)
[2017-11-19 20:17] LABS: ALT (GPT) 17 U/L (10-53)
[2017-11-19 20:21] LABS: ALKALINE PHOSPHATASE 67 U/L (45-117); TOTAL BILIRUBIN ADULT 0.3 MG/DL (0.2-1.0); TOTAL PROTEIN 7.3 GM/DL (6.4-8.2); TROPONIN I LESS THAN 0.02 NG/ML (0.02-0.05)
[2017-11-19 20:31] VITALS: RESP 17; O2SAT 99
[2017-11-19] MEDS ORDERED: IOHEXOL 350 MG/ML 10 ML VIAL (for RAD DIAG) IVCONTRAST ONE (21:07)
--- NOTE | 2017-11-19 21:17 | RADRPT ---
EXAM DATE/TIME: 11/19/2017 20:43 [facility] COMPARISON: No previous studies available for comparison. INDICATIONS : Diffuse abdominal pain for 10 days. IV CONTRAST: 97 cc Omnipaque 350 (iohexol) IV ORAL CONTRAST: Prescribed oral contrast ingested. RADIATION DOSE: 7.77 CTDIvol (mGy) MEDICAL HISTORY : Cardiovascular disease. Hypertension. SURGICAL HISTORY : Right Breast Lumpectomy. ENCOUNTER: Initial ACUITY: 2 weeks PAIN SCALE: 5/10 LOCATION: Abdomen TECHNIQUE: Volumetric scanning of the abdomen and pelvis was performed. Using automated exposure control and ad justment of the mA and/or kV according to patient size, radiation dose was kept as low as reasonably achievable to obtain optimal diagnostic quality images. DICOM format image data is available electro nically for review and comparison. FINDINGS: LOWER LUNGS: The visualized lower lungs are clear. LIVER: Homogeneous density without lesion. There is no dilation of the biliary tree. No calcified gallston es. SPLEEN: Normal size without lesion. PANCREAS: Within normal limits. KIDNEYS: Normal in size and shape. There is no mass, stone or hydronephrosis. ADRENAL GLANDS: Within normal limits. VASCULAR: There is no aortic aneurysm. BOWEL/MESENTERY: Diverticulosis of the colon without diverticulitis. Lisbet mesentery. Mildly prominent lymph nodes in the mesentery largest measures 2.4 x 1.9 cm.. There is no free intraperitoneal air or fluid. ABDOMINAL WALL: Within normal limits. RETROPERITONEUM: There is retrocrural lymph node on the right measures 1.7 x 1.3 cm. There is right periaortic lymphad enopathy posterior to the IVC measuring 1.4 x 0.9 cm. Other smaller retroperitoneal lymphadenopathy.. BLADDER: No wall thickening or mass. REPRODUCTIVE: Within normal limits. INGUINAL: There is no lymphadenopathy or hernia. MUSCULOSKELETAL: Within normal limits for patient age. CONCLUSION: 1. Lisbet mesentery which can be seen with mesenteric panniculitis. 2. Prominent lymph nodes in the mesentery, retroperitoneum and retrocrural regions, nonspecific but c ondition such as leukemia/lymphoma cannot be excluded. 3. Diverticulosis without diverticulitis. David Valencia MD on November 19, 2017 at 21:11 Board Certified Radiologist. This report was verified electronically.
[2017-11-19] MEDS ORDERED: LEVOFLOXACIN 500 MG TAB PO ONE (21:45)
[2017-11-19] MEDS ORDERED: metroNIDAZOLE 500 MG INJ 100 ML IV ONE (21:45)
[2017-11-19] MEDS ORDERED: SODIUM CHLORIDE 0.9% FLUSH 10 ML FLUSH IV FLUSH PRN (23:15)
[2017-11-19] MEDS ORDERED: NALOXONE HCL 0.4 MG/ML AMP IV PUSH PRN (23:15)
[2017-11-19] MEDS ORDERED: ACETAMINOPHEN 325 MG TAB PO PRN (23:15)
[2017-11-19] MEDS ORDERED: MORPHINE SULFATE 4 MG/ML INJ IV PUSH PRN ×2 (23:15)
--- NOTE | 2017-11-19 23:27 | HHI.HP ---
HPI Service [facility] Primary Care Physician Timothy Cornell MD Admission Diagnosis Mesenteric paniculitis, Intraabdominal lymphadenopathy Diagnoses: Travel History International Travel<30 Days: No Contact w/Intl Traveler <30 Da: No Traveled to Known Affected Are: No History of Present Illness 62-year-old female with a past medical history significant for hypertension, chronic back pain, depression and anxiety presents to the emergency department for the evaluation of abdominal pain. The patient reports for the last 10 days she thought she had the stomach flu. She states that she had significant abdominal pain with accompanying nausea and diarrhea times the last 3 days. She has been unable to eat anything except for toast and soup since her symptoms began. She endorses subjective fever and chills. The patient denies any chest pain or shortness of breath. She reports increasing weakness throughout the course of her illness. No lateralizing signs/symptoms. Review of Systems Except as stated in HPI: all other systems reviewed are Neg Past Family Social History Past Medical History Hypertension Depression Chronic back pain Anxiety Past Surgical History Right tennis elbow Right shoulder Reported Medications Reported Meds & Active Scripts Active Reported Hydrocodone-Acetaminophen 5-325 mg Tab 1 Tab PO Q12HR PRN Xanax (Alprazolam) 0.5 Mg Tab 0.5 Mg PO Q12HR PRN Paroxetine (Paroxetine HCl) 20 Mg Tab 20 Mg PO DAILY Metoprolol Succinate ER 24 HR (Metoprolol Succinate) 50 Mg Tab 50 Mg PO DAILY Allergies: Coded Allergies: fire ant (Unverified Allergy, Unknown, 11/19/17) Uncoded Allergies: tea tree oil (Allergy, Mild, 11/25/16) Family History Mother with CAD Social History Smokes approximately three quarters of a pack per day. Drinks approximately 1- 2 glasses of wine daily. Denies illicit drugs. Physical Exam Vital Signs Vital Signs Date Time Temp Pulse Resp B/P (MAP) Pulse Ox O2 Delivery O2 Flow Rate FiO2 11/19/17 20:41 20 11/19/17 20:31 17 99 Room Air 11/19/17 20:13 63 15 153/73 (99) 99 Room Air 11/19/17 19:01 97.6 75 18 211/98 (755) 99 Physical Exam GENERAL: female lying in bed SKIN: No rashes, ecchymoses or lesions. Cool and dry. HEAD: Atraumatic. Normocephalic. No temporal or scalp tenderness. EYES: Pupils equal round and reactive. Extraocular motions intact. No scleral icterus. No injection or drainage. ENT: Nose without bleeding, purulent drainage or septal hematoma. Throat without erythema, tonsillar hypertrophy or exudate. Uvula midline. Airway patent. NECK: Trachea midline. No JVD or lymphadenopathy. Supple, nontender, no meningeal signs. CARDIOVASCULAR: Regular rate and rhythm without murmurs, gallops, or rubs. RESPIRATORY: Clear to auscultation. Breath sounds equal bilaterally. No wheezes , rales, or rhonchi. GASTROINTESTINAL: Abdomen soft, diffusely tender to palpation, nondistended. No hepato-splenomegaly, or palpable masses. No guarding. MUSCULOSKELETAL: Extremities without clubbing, cyanosis, or edema. No joint tenderness, effusion, or edema noted. No calf tenderness. NEUROLOGICAL: Awake and alert. Cranial nerves II through XII intact. Motor and sensory grossly within normal limits. Normal speech. Laboratory Laboratory Tests Test 11/19/17 19:45 White Blood Count 8.1 Red Blood Count 4.62 Hemoglobin 14.2 Hematocrit 42.3 Mean Corpuscular Volume 91.6 Mean Corpuscular Hemoglobin 30.7 Mean Corpuscular Hemoglobin Concent 33.6 Red Cell Distribution Width 13.2 Platelet Count 268 Mean Platelet Volume 8.1 Neutrophils (%) (Auto) 63.9 Lymphocytes (%) (Auto) 24.5 Monocytes (%) (Auto) 6.7 Eosinophils (%) (Auto) 4.2 Basophils (%) (Auto) 0.7 Neutrophils # (Auto) 5.2 Lymphocytes # (Auto) 2.0 Monocytes # (Auto) 0.5 Eosinophils # (Auto) 0.3 Basophils # (Auto) 0.1 CBC Comment DIFF FINAL Differential Comment Prothrombin Time 10.3 Prothromb Time International Ratio 1.0 Activated Partial Thromboplast Time 26.7 Urine Color LIGHT-YELLOW Urine Turbidity CLEAR Urine pH 6.0 Urine Specific [place] 1.007 Urine Protein NEG Urine Glucose (UA) NEG Urine Ketones NEG Urine Occult Blood NEG Urine Nitrite NEG Urine Bilirubin NEG Urine Urobilinogen LESS THAN 2.0 Urine Leukocyte Esterase NEG Urine RBC 1 Urine WBC 1 Urine Squamous Epithelial Cells 3 Microscopic Urinalysis Comment CULT NOT INDICATED Blood Urea Nitrogen 6 Creatinine 0.69 Random Glucose 98 Total Protein 7.3 Albumin 3.5 Calcium Level 9.5 Magnesium Level 1.9 Alkaline Phosphatase 67 Aspartate Amino Transf (AST/SGOT) 12 Alanine Aminotransferase (ALT/SGPT) 17 Total Bilirubin 0.3 Sodium Level 140 Potassium Level 3.5 Chloride Level 104 Carbon Dioxide Level 26.2 Anion Gap 10 Estimat Glomerular Filtration Rate 86 Lactic Acid Level 1.3 Total Creatine Kinase 46 Troponin I LESS THAN 0.02 B-Type Natriuretic Peptide 123 Lipase 73 Result Diagram: 11/19/17194411/19/171944 Caprini VTE Risk Assessment Caprini VTE Risk Assessment: Mod/High Risk (score >= 2) Caprini Risk Assessment Model Point Value = 1 Point Value = 2 Point Value = 3 Point Value = 5 Age 41-60 Minor surgery BMI > 25 kg/m2 Swollen legs Varicose veins or History of unexplained or recurrent spontaneous Oral contraceptives or hormone replacement Sepsis (< 1 month) Serious lung disease, including pneumonia (< 1 month) Abnormal pulmonary function Acute myocardial infarction Congestive heart failure (< 1 month) History of inflammatory bowel disease Medical patient at bed rest Age 61-74 Arthroscopic surgery Major open surgery (> 45 min) Laparoscopic surgery (> 45 min) Malignancy Confined to bed (> 72 hours) Immobilizing plaster cast Central venous access Age >= 75 History of VTE Family history of VTE Factor V Leiden Prothrombin [id number] Lupus anticoagulant Anticardiolipin antibodies Elevated serum homocysteine Heparin-induced thrombocytopenia Other congenital or acquired thrombophilia Stroke (< 1 month) Elective arthroplasty Hip, pelvis, or leg fracture Acute spinal cord injury (< 1 month) Prophylaxis Regimen Total Risk Factor Score Risk Level Prophylaxis Regimen 0-1 Low Early ambulation 2 Moderate Order ONE of the following: *Sequential Compression Device (SCD) *Heparin 5000 units SQ BID 3-4 Higher Order ONE of the following medications: *Heparin 5000 units SQ TID *Enoxaparin/Lovenox 40 mg SQ daily (WT < 150 kg, CrCl > 30 mL/min) *Enoxaparin/Lovenox 30 mg SQ daily (WT < 150 kg, CrCl > 10-29 mL/min) *Enoxaparin/Lovenox 30 mg SQ BID (WT < 150 kg, CrCl > 30 mL/min) AND/OR *Sequential Compression Device (SCD) 5 or more Highest Order ONE of the following medications: *Heparin 5000 units SQ TID (Preferred with Epidurals) *Enoxaparin/Lovenox 40 mg SQ daily (WT < 150 kg, CrCl > 30 mL/min) *Enoxaparin/Lovenox 30 mg SQ daily (WT < 150 kg, CrCl > 10-29 mL/min) *Enoxaparin/Lovenox 30 mg SQ BID (WT < 150 kg, CrCl > 30 mL/min) AND *Sequential Compression Device (SCD) Assessment and Plan Assessment and Plan Assessment/plan: 1. Abdominal pain CT of the abdomen/pelvis significant for garland mesentery consistent with mesenteric panniculitis and prominent lymph nodes in the mesentery, retroperitoneum and retrocrural regions, cannot exclude leukemia/lymphoma Concern for infection versus leukemia/lymphoma Levaquin and Flagyl for possible infectious etiology Medical oncology consulted, appreciate recommendations Morphine for pain 2. Hypertension Continue home metoprolol 3. Depression/anxiety Continue home fluoxetine and Xanax 4. Chronic back pain Holding home hydrocodone as patient on morphine FEN NPO Electrolytes: Monitor and replete as needed NS at 100 cc/hour Heparin Physician Certification 2 Midnight Certification Type: Admission for Inpatient Services Order for Inpatient Services The services are ordered in accordance with Medicare regulations or non- Medicare payer requirements, as applicable. In the case of services not specified as inpatient-only, they are appropriately provided as inpatient services in accordance with the 2-midnight benchmark. Estimated LOS (days): 2 2 days is the estimated time the patient will need to remain in the hospital, assuming treatment plan goals are met and no additional complications. Post-Hospital Plan: Not yet determined Adrianne Dai MD November 19, 2017 23:27
[2017-11-19] MEDS ORDERED: ZOLPIDEM TARTRATE 10 MG TAB PO PRN (23:30)
[2017-11-19] MEDS ORDERED: ALPRAZolam 0.5 MG TAB PO PRN (23:30)
[2017-11-20 01:35] VITALS: BP 134/60; PULSE 51; RESP 16; TEMP 97.6; O2SAT 96
[2017-11-20 04:23] VITALS: BP 127/62; PULSE 50; RESP 16; TEMP 97.6; O2SAT 97
[2017-11-20] MEDS: metroNIDAZOLE 500 MG INJ 100 ML IV SCH ×3 (06:03→22:56)
[2017-11-20 07:50] VITALS: BP 103/56; PULSE 57; RESP 20; TEMP 98.3; O2SAT 98
[2017-11-20 07:57] LABS: BASOPHIL # 0.1 TH/MM3 (0-0.2); BASOPHIL % 0.7 % (0.0-2.0); EOSINOPHIL # 0.4 TH/MM3 (0-0.4); EOSINOPHIL % 3.9 % (0.0-4.0); HEMOGLOBIN 12.8 GM/DL (11.6-15.3); LYMPH % 22.7 % (9.0-44.0); LYMPHOCYTE # 2.1 TH/MM3 (1.0-4.8); MEAN CELL VOLUME 91.7 FL (80.0-100.0); MEAN CORPUSCULAR HEMOGLOBIN 31.1 PG (27.0-34.0); MEAN CORPUSCULAR HGB CONC 33.9 % (32.0-36.0); MEAN PLATELET VOLUME 8.1 FL (7.0-11.0); MONO % 7.2 % (0.0-8.0); MONOCYTE # 0.7 TH/MM3 (0-0.9); NEUT % 65.5 % (16.0-70.0); PLATELET COUNT 238 TH/MM3 (150-450); RED BLOOD COUNT 4.14 MIL/MM3 (4.00-5.30); RED CELL DISTRIBUTION WIDTH 13.5 % (11.6-17.2); WHITE BLOOD COUNT 9.2 TH/MM3 (4.0-11.0)
--- NOTE | 2017-11-20 08:05 | HHI.PR ---
Subjective Remarks in no acute distress. abdominal pain is better. no nausea or vomiting. afebrile. Objective Vitals Vital Signs Date Time Temp Pulse Resp B/P (MAP) Pulse Ox O2 Delivery O2 Flow Rate FiO2 11/20/17 07:50 98.3 57 20 103/56 (72) 98 11/20/17 04:23 97.6 50 16 127/62 (83) 97 11/20/17 01:35 97.6 51 16 134/60 (84) 96 11/20/17 01:19 11/19/17 20:41 20 11/19/17 20:31 17 99 Room Air 11/19/17 20:13 63 15 153/73 (99) 99 Room Air 11/19/17 19:01 97.6 75 18 211/98 (135) 99 I/O 11/19/17 11/19/17 11/19/17 11/20/17 11/20/17 11/20/17 07:00 15:00 23:00 07:00 15:00 23:00 Intake Total 1100 ml Balance 1100 ml Intake IV Total 1100 ml # Voids 3 Result Diagram: 11/19/17194411/19/171944 Imaging Last Impressions Chest X-Ray 11/19/171920 Signed Impressions: Service Date/Time: Sunday, November 19, 2017 19:29 - CONCLUSION: No acute disease. David Valencia MD Abdomen/Pelvis CT 11/19/171920 Signed Impressions: Service Date/Time: Sunday, November 19, 2017 20:43 - CONCLUSION: 1. 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 2. Prominent lymph nodes in the mesentery, retroperitoneum and retrocrural regions, nonspecific but condition such as leukemia/lymphoma cannot be excluded. 3. Diverticulosis without diverticulitis. David Valencia MD Objective Remarks GENERAL: This is a well-nourished, well-developed patient, in no apparent distress. CARDIOVASCULAR: Regular rate and regular rhythm without murmurs, gallops, or rubs. RESPIRATORY: Clear to auscultation. Breath sounds equal bilaterally. No wheezes , rales, or rhonchi. GASTROINTESTINAL: Abdomen soft, non-tender, nondistended. Normal, active bowel sounds MUSCULOSKELETAL: Extremities without clubbing, cyanosis, or edema. NEURO: Alert & Oriented x4 to person, place, time, situation. Moves all ext x4 Medications and IVs Inpatient Medications Acetaminophen (Tylenol) 650 mg Q4H PRN PO TEMP > 100.4; Start 11/19/17 at 23:15 Alprazolam (Xanax) 0.5 mg Q12HR PRN PO ANXIETY; Start 11/19/17 at 23:30 Heparin Sodium (Porcine) (Heparin Inj) 5,000 units Q12HR SQ ; Start 11/20/17 at 09:00 Influenza Virus Vaccine (Flu (Quadrivalent) Vaccine Inj) 0.5 ml ONCE ONCE IM ; Start 11/21/17 at 10:00; Stop 11/21/17 at 10:01 Levofloxacin (Levaquin) 500 mg ONCE ONCE PO Last administered on 11/19/17at 21: 42; Start 11/19/17 at 21:45; Stop 11/19/17 at 21:46; Status DC Levofloxacin/ Dextrose 150 ml @ 100 mls/hr Q24H IV ; Start 11/20/17 at 20:00 Metoprolol Succinate (Toprol Xl) 50 mg DAILY PO ; Start 11/20/17 at 09:00 Metronidazole 100 ml @ 100 mls/hr Q8H IV Last administered on 11/20/17at 06:03 ; Start 11/20/17 at 06:00 Morphine Sulfate (Morphine Inj) 4 mg Q3H PRN IV PUSH 6-10 Last administered on 11/20/17at 02:05; Start 11/19/17 at 23:15 Naloxone HCl (Narcan Inj) 0.4 mg UNSCH PRN IV PUSH SEE LABEL COMMENTS; Start at 23:15 Ondansetron HCl (Zofran Inj) 4 mg ONCE ONCE IV ; Start 11/19/17 at 19:30; Stop 11/19/17 at 20:00; Status DC Paroxetine HCl (Paxil) 20 mg DAILY PO ; Start 11/20/17 at 09:00 Prochlorperazine Edisylate (Compazine Inj) 5 mg ONCE ONCE IV PUSH Last administered on 11/19/17at 21:04; Start 11/19/17 at 21:00; Stop 11/19/17 at 21:01 ; Status DC Sodium Chloride 1,000 ml @ 100 mls/hr Q10H IV Last administered on 11/19/17at 00:51; Start 11/19/17 at 23:30 Sodium Chloride (NS Flush) 2 ml BID IV FLUSH ; Start 11/20/17 at 09:00 Zolpidem Tartrate (Ambien) 10 mg HS PRN PO Insomnia; Start 11/19/17 at 23:30 A/P Assessment and Plan 1. Abdominal pain CT of the abdomen/pelvis significant for garland mesentery consistent with mesenteric panniculitis and prominent lymph nodes in the mesentery, retroperitoneum and retrocrural regions, cannot exclude leukemia/lymphoma Concern for infection versus leukemia/lymphoma Jose and Amalia for possible infectious etiology Medical oncology consulted, appreciate recommendations Morphine for pain for now will start on liquid diet within the next 24 hrs if pain continues to improve. 2. Hypertension Continue home metoprolol 3. Depression/anxiety Continue home fluoxetine and Xanax 4. Chronic back pain Holding home hydrocodone as patient on morphine Discharge Planning awaiting oncology evaluation. Nikkie Bullard MD November 20, 2017 08:05
[2017-11-20 08:31] LABS: BICARBONATE 28.4 MEQ/L (21.0-32.0); CALCIUM 8.1 MG/DL (8.5-10.1); CREATININE 0.57 MG/DL (0.50-1.00)
[2017-11-20] MEDS: SODIUM CHLORIDE 0.9% FLUSH 10 ML FLUSH IV FLUSH SCH ×2 (09:00→20:22)
[2017-11-20] MEDS: PARoxetine HCL 20 MG TAB PO SCH (09:00)
[2017-11-20] MEDS: METOPROLOL SUCCINATE 50 MG EXTENDED RELEASE TAB PO SCH ×2 (09:00→15:38)
[2017-11-20] MEDS: HEPARIN SODIUM - SQ 10,000 UNITS/ML VIAL SQ SCH ×2 (09:00→20:26)
[2017-11-20 11:05] VITALS: BP 105/59; PULSE 47; RESP 20; TEMP 97.8; O2SAT 96
[2017-11-20 15:44] VITALS: BP 141/67; PULSE 54; RESP 20; TEMP 98.1; O2SAT 97
--- NOTE | 2017-11-20 18:45 | EKG ---
Date Performed: 11/19/2017 Time Performed: 19:56:07 PTAGE: 62 years EKG: SINUS BRADYCARDIA LOW QRS VOLTAGE IN PRECORDIAL LEADS BORDERLINE ECG Since the PREVIOUS TRACING , no significant change noted PREVIOUS TRACIN11/25/2016 16.35 DOCTOR: Dre Bryant Interpretating Date/Time 11/20/2017 18:43:52
[2017-11-20] MEDS: LEVOFLOXACIN 750 MG PREMIX INJ 150 ML IV SCH (20:23)
[2017-11-20] MEDS: SODIUM CHLOR 0.9% 1000 ML INJ 1,000 ML IV SCH (20:24)
[2017-11-20 20:34] VITALS: BP 164/70; PULSE 43; RESP 18; TEMP 97.5; O2SAT 97
--- NOTE | 2017-11-20 23:39 | MB ---
cc: Rayshawn May MD DATE: 11/20/2017 REASON FOR CONSULTATION: Consult requested by hospitalist for evaluation of abdominal lymphadenopathy. HISTORY OF PRESENT ILLNESS: Norma is a 62-year-old female. Her primary physician is Dr. Lopez and Dr. Oneill. She states that she has been having abdominal pain for the last couple of weeks. She went to see her primary physician, Dr. Oneill. She was given some medication without having any relief. She had developed severe diarrhea and the abdominal pain was getting worse. She decided to come to the emergency room. She underwent CAT scan of the abdomen and pelvis which showed mesenteric panniculitis and abdominal lymphadenopathy. The radiologist mentioned that this could be possible leukemia or lymphoma, I have been asked to see her for that. REVIEW OF SYSTEMS: The patient has a history of diverticulosis with diverticulitis. She stated that she thinks that this is one of her episodes of diverticulitis, having severe pain and diarrhea. Although the CAT scan of the abdomen and pelvis showed diverticulosis without any diverticulitis. The patient is on antibiotics. She states that her abdominal pain has improved with that. The rest of the review of systems is negative. PAST MEDICAL HISTORY: Arthritis, anxiety disorder, depression, hypertension, chronic low back pain, diverticulosis with diverticulitis, migraine headaches. PAST SURGICAL HISTORY: Shoulder surgery, right tennis elbow surgery, right breast lumpectomy and the pathology was benign. ALLERGIES: NONE TO MEDICATIONS: MEDICATIONS: Prior to going into the hospital: 1. Lortab. 2. Xanax. 3. Paroxetine. 4. Metoprolol. FAMILY HISTORY: None for malignancy. SOCIAL HISTORY: She smokes cigarettes, half pack a day, and also drinks alcohol, 1 to 2 drinks every day. PHYSICAL EXAMINATION: GENERAL: A well-developed, well-nourished, anxious appearing white female in no apparent distress. VITAL SIGNS: Temperature 97.8, heart rate is 47, blood pressure 105/59. HEAD, EYES, EARS, NOSE, AND THROAT: Pupils equal, round, reactive to light and accommodation, extraocular movements intact. Anicteric. No oral lesions noted. No thrush noted. NECK: Supple. No JVD. No masses noted. LUNGS: Clear. No wheezing, rhonchi, or rales. HEART: Regular rate and rhythm. No murmur heard. ABDOMEN: Diffusely tender. EXTREMITIES: No pedal edema. No cyanosis, no clubbing. NEUROLOGIC: Awake, alert, oriented x 3. Sensory and motor seem to be intact. SKIN: No bruises or petechiae noted. BREASTS: No masses noted. LYMPH NODES: No cervical, supraclavicular, or axillary lymphadenopathy noted. BACK: There is no spinal tenderness noted. ASSESSMENT : 1. Abdominal lymphadenopathy. The differential is infectious lymphadenopathy versus neoplastic. 2. Diverticulosis with diverticulitis. PLAN: I have reviewed her available records, and I have discussed with the patient regarding the CAT scan of the abdomen and pelvis findings. We discussed her blood test results. Her CBC is completely normal. She does not have any leukemia. She does have some abdominal lymphadenopathy, but she does not have any bulky lymphadenopathy. The lymphadenopathy could be benign versus malignant. My recommendation is to get the CAT scan of the chest to evaluate for any other lymphadenopathy. If the CAT scan of the chest shows significant lymphadenopathy, then we will attempt to get the biopsy. However, if the CT of the chest is negative, then my recommendation is to repeat CAT scan of the abdomen in 3 months. If the lymphadenopathy is progressive, then we will ask General Surgery for laparoscopic biopsy of the lymph node for tissue diagnosis. I will also order the tumor markers. Further recommendations will be based on her hospital stay. Thank you for asking my opinion. MD SMITA Figueroa/SMILEY , 11:17 PM , 11:38 PM
[2017-11-21] VITALS: BP 161/70; PULSE 56; RESP 20; TEMP 98.4; O2SAT 95
[2017-11-21 03:25] VITALS: BP 157/73; PULSE 59; RESP 18; TEMP 98.1; O2SAT 97
[2017-11-21] MEDS: SODIUM CHLOR 0.9% 1000 ML INJ 1,000 ML IV SCH ×2 (03:30→15:30)
[2017-11-21] MEDS: metroNIDAZOLE 500 MG INJ 100 ML IV SCH ×3 (06:09→20:24)
[2017-11-21 08:00] VITALS: BP 166/71; PULSE 45; RESP 18; TEMP 98.2; O2SAT 97
[2017-11-21] MEDS: HEPARIN SODIUM - SQ 10,000 UNITS/ML VIAL SQ SCH ×2 (09:00→20:24)
[2017-11-21] MEDS: SODIUM CHLORIDE 0.9% FLUSH 10 ML FLUSH IV FLUSH SCH ×2 (09:00→20:24)
[2017-11-21] MEDS ORDERED: INFLUENZA VIRUS VACCINE (QUADRIVALENT) 0.5 ML SYR IM ONE (10:00)
--- NOTE | 2017-11-21 10:04 | HHI.PR ---
Subjective Remarks in no acute distress. still with some diarrhea. denies abdominal pain, nausea or vomiting. Objective Vitals Vital Signs Date Time Temp Pulse Resp B/P (MAP) Pulse Ox O2 Delivery O2 Flow Rate FiO2 11/21/17 08:00 98.2 45 18 166/71 (102) 97 11/21/17 03:25 98.1 59 18 157/73 (101) 97 11/21/17 00:00 98.4 56 20 161/70 (100) 95 11/20/17 20:34 97.5 43 18 164/70 (101) 97 11/20/17 15:44 98.1 54 20 141/67 (91) 97 11/20/17 11:05 97.8 47 20 105/59 (74) 96 I/O 11/20/17 11/20/17 11/20/17 11/21/17 11/21/17 11/21/17 07:00 15:00 23:00 07:00 15:00 23:00 Intake Total 0 ml Balance 0 ml Intake Oral 0 ml # Voids 3 6 1 # Bowel Movements 1 1 Result Diagram: 11/20/17 0711 11/20/17 07 Imaging Last Impressions Chest X-Ray 11/19/171920 Signed Impressions: Service Date/Time: Sunday, November 19, 2017 19:29 - CONCLUSION: No acute disease. David Valencia MD Abdomen/Pelvis CT 11/19/171920 Signed Impressions: Service Date/Time: Sunday, November 19, 2017 20:43 - CONCLUSION: 1. 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 2. Prominent lymph nodes in the mesentery, retroperitoneum and retrocrural regions, nonspecific but condition such as leukemia/lymphoma cannot be excluded. 3. Diverticulosis without diverticulitis. David Valencia MD Objective Remarks GENERAL: This is a well-nourished, well-developed patient, in no apparent distress. CARDIOVASCULAR: Regular rate and regular rhythm without murmurs, gallops, or rubs. RESPIRATORY: Clear to auscultation. Breath sounds equal bilaterally. No wheezes , rales, or rhonchi. GASTROINTESTINAL: Abdomen soft, non-tender, nondistended. Normal, active bowel sounds MUSCULOSKELETAL: Extremities without clubbing, cyanosis, or edema. NEURO: Alert & Oriented x4 to person, place, time, situation. Moves all ext x4 Medications and IVs Inpatient Medications Acetaminophen (Tylenol) 650 mg Q4H PRN PO TEMP > 100.4; Start 11/19/17 at 23:15 Alprazolam (Xanax) 0.5 mg Q12HR PRN PO ANXIETY Last administered on 11/21/17at 03:30; Start 11/19/17 at 23:30 Heparin Sodium (Porcine) (Heparin Inj) 5,000 units Q12HR SQ Last administered on 11/20/17at 09:00; Start 11/20/17 at 09:00 Influenza Virus Vaccine (Flu (Quadrivalent) Vaccine Inj) 0.5 ml ONCE ONCE IM ; Start 11/21/17 at 10:00; Stop 11/21/17 at 10:01 Levofloxacin (Levaquin) 500 mg ONCE ONCE PO Last administered on 11/19/17at 21: 42; Start 11/19/17 at 21:45; Stop 11/19/17 at 21:46; Status DC Levofloxacin/ Dextrose 150 ml @ 100 mls/hr Q24H IV Last administered on at 20:23; Start 11/20/17 at 20:00 Metoprolol Succinate (Toprol Xl) 50 mg DAILY PO Last administered on 11/20/17at 15:38; Start 11/20/17 at 09:00 Metronidazole 100 ml @ 100 mls/hr Q8H IV Last administered on 11/21/17at 06:09 ; Start 11/20/17 at 06:00 Morphine Sulfate (Morphine Inj) 4 mg Q3H PRN IV PUSH 6-10 Last administered on 11/20/17at 02:05; Start 11/19/17 at 23:15 Naloxone HCl (Narcan Inj) 0.4 mg UNSCH PRN IV PUSH SEE LABEL COMMENTS; Start at 23:15 Ondansetron HCl (Zofran Inj) 4 mg ONCE ONCE IV ; Start 11/19/17 at 19:30; Stop 11/19/17 at 20:00; Status DC Paroxetine HCl (Paxil) 20 mg DAILY PO Last administered on 11/20/17at 09:00; Start 11/20/17 at 09:00 Prochlorperazine Edisylate (Compazine Inj) 5 mg ONCE ONCE IV PUSH Last administered on 11/19/17at 21:04; Start 11/19/17 at 21:00; Stop 11/19/17 at 21:01 ; Status DC Sodium Chloride 1,000 ml @ 100 mls/hr Q10H IV Last administered on 11/21/17at 03:30; Start 11/19/17 at 23:30 Sodium Chloride (NS Flush) 2 ml BID IV FLUSH Last administered on 11/20/17at 20: 22; Start 11/20/17 at 09:00 Zolpidem Tartrate (Ambien) 10 mg HS PRN PO Insomnia; Start 11/19/17 at 23:30 A/P Assessment and Plan 1. Abdominal pain/ diarrhea CT of the abdomen/pelvis significant for garland mesentery consistent with mesenteric panniculitis and prominent lymph nodes in the mesentery, retroperitoneum and retrocrural regions, cannot exclude leukemia/lymphoma Concern for infection versus leukemia/lymphoma stool negative for C-diff. will follow the stool w/u. Jose and Amalia for possible infectious etiology Medical oncology consulted, appreciate recommendations; CT chest pending. continue with pain control. start on liquid diet and advance as tolerated. 2. Hypertension Continue home metoprolol 3. Depression/anxiety Continue home fluoxetine and Xanax 4. Chronic back pain continue pain control Discharge Planning dc home tomorrow if tolerates the diet- pending the chest CT. Nikkie Bullard MD November 21, 2017 10:04
[2017-11-21] MEDS: PARoxetine HCL 20 MG TAB PO SCH (10:05)
[2017-11-21] MEDS: METOPROLOL SUCCINATE 50 MG EXTENDED RELEASE TAB PO SCH (10:06)
[2017-11-21] MEDS ORDERED: ACETAMINOPHEN/HYDROcodone 325 MG/5 MG TAB PO PRN (10:15)
--- NOTE | 2017-11-21 11:08 | PD.ONC.PN ---
Subjective Subjective Remarks Afebrile overnight. Patient resting in bed. states she is very hungry and continues to have multiple liquid stools. worried about the enlarged lymph nodes in her abdomen. Objective Data Date Time Temp Pulse Resp B/P (MAP) Pulse Ox O2 Delivery O2 Flow Rate FiO2 11/21/17 08:00 98.2 45 18 166/71 (102) 97 11/21/17 03:25 98.1 59 18 157/73 (101) 97 11/21/17 00:00 98.4 56 20 161/70 (100) 95 11/20/17 20:34 97.5 43 18 164/70 (101) 97 11/20/17 15:44 98.1 54 20 141/67 (91) 97 11/20/17 11:05 97.8 47 20 105/59 (74) 96 Result Diagram: 11/20/17 0711 11/20/17710 Laboratory Results Laboratory Tests Test 11/20/17 15:10 11/21/17 06:22 Stool C. difficile Toxin (PCR) NEGATIVE Stl C. difficile Toxin Epiderm 027 PRESUMPTIVE NEGATIVE Lactate Dehydrogenase 128 U/L Culture Results Microbiology Date/Time Source Procedure Growth Status 11/20/17 15:10 Stool Stool Stool Pus (SAMMY) - Final NO WBC'S SEEN Complete 11/20/17 15:10 Stool Stool - Final NO ENTERIC PATHOGENS DETECTED BY PCR... Complete Administered Medications Medications (Trade) Dose Ordered Sig/Viviana Route PRN Reason Start Time Stop Time Status Last Admin Dose Admin Sodium Chloride (NS Flush) 2 ml BID IV FLUSH 11/20/17 09:00 11/20/17 20:22 Metronidazole 100 ml @ 100 mls/hr Q8H IV 11/20/17 06:00 11/21/17 06:09 Levofloxacin/ Dextrose 150 ml @ 100 mls/hr Q24H IV 11/20/17 20:00 11/20/17 20:23 Alprazolam (Xanax) 0.5 mg Q12HR PRN PO ANXIETY 11/19/17 23:30 11/21/17 03:30 Metoprolol Succinate (Toprol Xl) 50 mg DAILY PO 11/20/17 09:00 11/21/17 10:06 Paroxetine HCl (Paxil) 20 mg DAILY PO 11/20/17 09:00 11/21/17 10:05 Sodium Chloride 1,000 ml @ 100 mls/hr Q10H IV 11/19/17 23:30 11/21/17 03:30 Heparin Sodium (Porcine) (Heparin Inj) 5,000 units Q12HR SQ 11/20/17 09:00 11/20/17 09:00 Objective Remarks GENERAL: Pleasant middle aged female, lying supine in bed resting. SKIN: Warm and dry. HEAD: Normocephalic. EYES: No injection or drainage. NECK: Supple, trachea midline. CARDIOVASCULAR: Regular rate and rhythm RESPIRATORY: Breath sounds equal bilaterally. No accessory muscle use. GASTROINTESTINAL: Abdomen soft, mildly tender throughout, nondistended. EXTREMITIES: No cyanosis NEUROLOGICAL: Awake, alert. normal speech. Assessment/Plan Problem List: (1) Abdominal lymphadenopathy ICD Codes: R59.0 - Localized enlarged lymph nodes Plan: 11/21: tumor markers pending. await CT chest today to determine if biopsy is needed. --no bulky lymphadenopathy. --benign versus malignant. Assessment 62y/o female admitted with abdominal pain and diarrhea. Oncology consulted for abdominal lymphadenopathy. h/o arthritis, anxiety disorder, depression, hypertension, chronic low back pain , diverticulosis with diverticulitis, migraine headaches. Attending Statement The exam, history, and the medical decision-making described in the above note were completed with the assistance of the mid-level provider. I reviewed and agree with the findings presented. I attest that I had a [id number] encounter with the patient on the same day, and personally performed and documented my assessment and findings in the medical record. Patient continues to have liquid Diarrhea. Yesterday she had 15 bowel movements. Today she had 12 hour moments. It is watery diarrhea. Stools are negative. Management of diarrhea per [facility]. Two markers are normal CT of the chest does not show any lymphadenopathy, Has a very small nonspecific pulmonary. Abdomen lymphadenopathy could be reactive. Recommend to Repeat CT of the abdomen in three months. If she has Progressive lymphadenopathy then we'll Consider biopsy. Patient has agreed with the plan. No further oncology intervention is indicated. Management Of Gastroenteritis per [facility] Dot Marlow November 21, 2017 11:08 Raghavendra May MD November 21, 2017 21:12
[2017-11-21 11:32] LABS: CA 125 3.1 U/ML (0.0-30.2)
[2017-11-21 11:33] LABS: CA 19-9 LESS THAN 1.2 U/ML (0.0-35.0)
[2017-11-21 12:23] LABS: CARCINOEMBRYONIC ANTIGEN 0.8 NG/ML (0.2-5.0)
[2017-11-21 12:40] VITALS: BP 143/66; PULSE 48; RESP 18; TEMP 98.3; O2SAT 96
[2017-11-21] MEDS ORDERED: IOHEXOL 350 MG/ML 10 ML VIAL (for RAD DIAG) IVCONTRAST ONE (13:32)
--- NOTE | 2017-11-21 13:47 | RADRPT ---
EXAM DATE/TIME: 11/21/2017 13:14 [facility] COMPARISON: CHEST SINGLE AP, November 19, 2017, 19:29. INDICATIONS : Evaluate for lymphadenopathy. IV CONTRAST: 50 cc Omnipaque 350 (iohexol) IV RADIATION DOSE: 12.91 CTDIvol (mGy) MEDICAL HISTORY : Cardiovascular disease. Hypertension. SURGICAL HISTORY : None. ENCOUNTER: Initial ACUITY: 1 day PAIN SCALE: 0/10 LOCATION: chest TECHNIQUE: Volumetric scanning of the chest was performed. Using automated exposure control and adjustment of t he mA and/or kV according to patient size, radiation dose was kept as low as reasonably achievable to obtain optimal diagnostic quality images. DICOM format image data is available electronically for review and comparison. Follow-up recommendations for detected pulmonary nodules are based at a minimum on nodule size and pa tient risk factors according to Fleischner Society Guidelines. FINDINGS: There is a noncalcified nodule in the left lower lobe measuring 3.7 mm on image 37. Review of bone wi ndows demonstrate degenerative changes of the spine. There is no adenopathy. No pleural or pericardia l effusions. Adrenals are normal. CONCLUSION: Solitary 3.7 mm noncalcified left lower lobe pulmonary nodule. Otherwise normal study. Hasmukh Will MD on November 21, 2017 at 13:43 Board Certified Radiologist. This report was verified electronically.
[2017-11-21 16:00] VITALS: BP 112/62; PULSE 50; RESP 18; TEMP 98.2; O2SAT 96
[2017-11-21 20:00] VITALS: BP 137/65; PULSE 51; RESP 18; TEMP 98; O2SAT 95
[2017-11-21] MEDS: LEVOFLOXACIN 750 MG PREMIX INJ 150 ML IV SCH (20:24)
[2017-11-22] VITALS: BP_SYST 146; BP_SYST 162; BP_DIAS 65; BP_DIAS 71; PULSE 51; RESP 19; TEMP 98; O2SAT 98
[2017-11-22] MEDS: SODIUM CHLOR 0.9% 1000 ML INJ 1,000 ML IV SCH (00:45)
[2017-11-22 04:00] VITALS: BP 142/70; PULSE 51; RESP 18; TEMP 97.7; O2SAT 97
[2017-11-22] MEDS: metroNIDAZOLE 500 MG INJ 100 ML IV SCH (05:10)
[2017-11-22 07:38] VITALS: BP 143/70; PULSE 59; RESP 19; TEMP 97.9; O2SAT 96
[2017-11-22] MEDS: HEPARIN SODIUM - SQ 10,000 UNITS/ML VIAL SQ SCH (09:00)
--- NOTE | 2017-11-22 09:19 | HHI.PR ---
Subjective Remarks patient states continued loose stools. States no significant abdominal pain. No active nausea or vomiting. Would like to try regular diet. States that she does have a history of previous diverticulosis on colonoscopy 10 years ago. No complaints of chills or fever. No complaint of chest pain or shortness of breath. Would like to go home. Is asking a medication for diarrhea. Objective Vitals Vital Signs Date Time Temp Pulse Resp B/P (MAP) Pulse Ox O2 Delivery O2 Flow Rate FiO2 11/22/17 07:38 97.9 59 19 143/70 (94) 96 11/22/17 04:00 97.7 51 18 142/70 (94) 97 11/22/17 00:00 98.0 51 19 146/65 (92) 98 11/21/17 20:00 98.0 51 18 137/65 (89) 95 11/21/17 16:00 98.2 50 18 112/62 (79) 96 11/21/17 12:40 98.3 48 18 143/66 (91) 96 I/O 11/21/17 11/21/17 11/21/17 11/22/17 11/22/17 11/22/17 07:00 15:00 23:00 07:00 15:00 23:00 # Voids 1 3 2 # Bowel Movements 1 3 2 Result Diagram: 11/20/1771011/20/17710 Objective Remarks GENERAL: This is a well-nourished, well-developed patient, in no apparent distress. CARDIOVASCULAR: Regular rate and rhythm RESPIRATORY: Clear to auscultation. Breath sounds equal bilaterally. No wheezes , rales, or rhonchi. GASTROINTESTINAL: Abdomen soft, non-tender, nondistended. Normal active bowel sounds MUSCULOSKELETAL: Extremities without clubbing, cyanosis, or edema. NEURO: Alert & Oriented x4 to person, place, time, situation. Moves all ext x4 A/P Assessment and Plan 1. Abdominal pain/ diarrhea - likely gastroenteritis Presenting CT of the abdomen/pelvis in the emergency room showed significant for mesentery consistent with mesenteric panniculitis and prominent lymph nodes in the mesentery, retroperitoneum and retrocrural regions, cannot exclude leukemia/lymphoma Initial concern for infection versus leukemia/lymphoma with consult to hematology/oncology recommendations on obtaining a CT chest which was negative and tumor markers which has been negative. With stool negative for C-diff; stool cultures has been negative. Levaquin and Flagyl for possible infectious etiology Appreciate hematology oncologist recommendation who has cleared the patient for discharge. continue with pain control. Advance to regular diet today as patient tolerating clear liquids. Lomotil for diarrhea. 2. Hypertension, essential and chronic Continue home metoprolol 3. Depression/anxiety, chronic Continue home fluoxetine and Xanax 4. Chronic back pain continue pain control 5. DVT prophylaxis - bilateral SCDs Discharge Planning Discharge to home today. Jeannie Steven MD November 22, 2017 09:19
[2017-11-22] MEDS ORDERED: CIPR-9 PO (09:22)
[2017-11-22] MEDS ORDERED: METR250 PO (09:22)
[2017-11-22] MEDS ORDERED: LOMO2.5T PO (09:22)
--- NOTE | 2017-11-22 09:31 | HHI.DS ---
Discharge Summary Admission Date November 19, 2017 at 21:44 Discharge Date: November 22, 2017 Admitting Diagnosis Mesenteric paniculitis, Intraabdominal lymphadenopathy (1) Gastroenteritis ICD Code: K52.9 - Noninfective gastroenteritis and colitis, unspecified Diagnosis: Principal Status: Acute (2) Intra-abdominal lymphadenopathy ICD Code: R59.0 - Localized enlarged lymph nodes Diagnosis: Principal Status: Acute Procedures none Brief History - From Admission Obtained from admitting physician's history and physical 62-year-old female with a past medical history significant for hypertension, chronic back pain, depression and anxiety presents to the emergency department for the evaluation of abdominal pain. The patient reports for the last 10 days she thought she had the stomach flu. She states that she had significant abdominal pain with accompanying nausea and diarrhea times the last 3 days. She has been unable to eat anything except for toast and soup since her symptoms began. She endorses subjective fever and chills. The patient denies any chest pain or shortness of breath. She reports increasing weakness throughout the course of her illness. No lateralizing signs/symptoms. CBC/BMP: 11/20/17 0711 11/20/17 0711 Significant Findings Laboratory Tests Test 11/19/17 19:45 11/20/17 07:11 11/20/17 15:10 11/21/17 06:22 Eosinophils (%) (Auto) 4.2 % (0.0-4.0) Blood Urea Nitrogen 6 MG/DL (7-18) 6 MG/DL (7-18) Aspartate Amino Transf (AST/SGOT) 12 U/L (15-37) Estimat Glomerular Filtration Rate 86 ML/MIN (>89) Troponin I LESS THAN 0.02 NG/ML B-Type Natriuretic Peptide 123 PG/ML (0-100) Calcium Level 8.1 MG/DL (8.5-10.1) Chloride Level 110 MEQ/L (98-107) Imaging Last Impressions Chest CT 11/21/17 0800 Signed Impressions: Service Date/Time: Tuesday, November 21, 2017 13:14 - CONCLUSION: Solitary 3.7 mm noncalcified left lower lobe pulmonary nodule. Otherwise normal study. Hasmukh Will MD Chest X-Ray 11/19/171920 Signed Impressions: Service Date/Time: Sunday, November 19, 2017 19:29 - CONCLUSION: No acute disease. David Valencia MD Abdomen/Pelvis CT 11/19/171920 Signed Impressions: Service Date/Time: Sunday, November 19, 2017 20:43 - CONCLUSION: 1. Lisbet mesentery which can be seen with mesenteric panniculitis. 2. Prominent lymph nodes in the mesentery, retroperitoneum and retrocrural regions, nonspecific but condition such as leukemia/lymphoma cannot be excluded. 3. Diverticulosis without diverticulitis. David Valencia MD PE at Discharge GENERAL: This is a well-nourished, well-developed patient, in no apparent distress. CARDIOVASCULAR: Regular rate and rhythm RESPIRATORY: Clear to auscultation. Breath sounds equal bilaterally. No wheezes , rales, or rhonchi. GASTROINTESTINAL: Abdomen soft, non-tender, nondistended. Normal active bowel sounds MUSCULOSKELETAL: Extremities without clubbing, cyanosis, or edema. NEURO: Alert & Oriented x4 to person, place, time, situation. Moves all ext x4 Hospital Course 62-year-old white female was admitted for symptoms of diarrhea and abnormal CT abdomen pelvis which revealed mesenteric panic colitis and intra-abdominal lymphadenopathy. Due to the presenting ED CT abdomen pelvis revealing mesenteric panniculitis with Prominent lymph nodes in the mesentery, retroperitoneum and retrocrural regions, nonspecific but condition such as leukemia/lymphoma cannot be excluded, patient was admitted for hematology oncology evaluation and continue workup. Her stool cultures was negative for any enteric pathogens or C. difficile. In addition, her tumor markers were negative with recommendations per hematology oncology to obtain a CT chest which was negative. Hematology oncology, Dr. May recommended repeat CT abdomen pelvis in 3 months and clear the patient for discharge for outpatient continued follow-up. She was started on empiric Levaquin and Flagyl for presumed gastroenteritis. At this time, patient has tolerated clear liquid diet will advance her to a regular diet. She has gained maximum benefit from hospitalization and will be discharged home with outpatient follow-up. Pt Condition on Discharge: Good Discharge Disposition: Discharge Home Discharge Time: <= 30 minutes Discharge Instructions DIET: Follow Instructions for: As Tolerated, No Restrictions Activities you can perform: Regular-No Restrictions Jeannie Steven MD November 22, 2017 09:31
[2017-11-22] MEDS ORDERED: DIPHENOXYLATE/ATROPINE 2.5 MG/0.025 MG TAB PO ONE (09:45)
[2017-11-22] MEDS ORDERED: LACTCHW3 CHEW (10:02)
[2017-11-22] MEDS ORDERED: LACTOBACILLUS ACIDOPHILUS TAB PO SCH (10:15)
[2017-11-22] MEDS: SODIUM CHLORIDE 0.9% FLUSH 10 ML FLUSH IV FLUSH SCH (10:23)
[2017-11-22] MEDS: PARoxetine HCL 20 MG TAB PO SCH (10:24)
[2017-11-22] MEDS: METOPROLOL SUCCINATE 50 MG EXTENDED RELEASE TAB PO SCH (10:30)
[2017-11-22] MEDS ORDERED: metroNIDAZOLE 250 MG TAB PO SCH (14:00)
[2017-11-22] MEDS ORDERED: DIPHENOXYLATE/ATROPINE 2.5 MG/0.025 MG TAB PO PRN (15:45)
[2017-11-22] MEDS ORDERED: CIPROFLOXACIN 500 MG TAB PO SCH (21:00)
== END 2017-11-22 11:51 | disposition home or self-care (01) | DRG 392 ==
LOC: NEPE 18:56 → NEDA 21:44 → N05B 11-20 01:02
PROVIDERS: ADMIT Family Medicine; ATTEND Family Medicine
DX: K52.9 Noninfective gastroenteritis and colitis, unspecified (principal); I10 Essential (primary) hypertension; K57.30 Diverticulosis of large intestine without perforation or abscess without bleeding; R53.1 Weakness; G89.29 Other chronic pain; F32.9 Major depressive disorder, single episode, unspecified; F41.9 Anxiety disorder, unspecified; M54.5 Low back pain; M19.90 Unspecified osteoarthritis, unspecified site; E78.00 Pure hypercholesterolemia, unspecified; G47.30 Sleep apnea, unspecified; F17.210 Nicotine dependence, cigarettes, uncomplicated; R59.0 Localized enlarged lymph nodes
CPT/HCPCS: 71045; 71260; 74177; 80048; 80053; 81001; 82378; 82550; 83605; 83615; 83690; 83735; 83880; 84484; 85025; 85610; 85730; 86301; 86304; 87205; 87493; 87506; 93005; 96361; 96374; 96375; 96376; J0780; J1644; J1956; J2270; J7030; Q9967